=== PATIENT | male | born 1950 | race Caucasian/White ===

== ENCOUNTER 2018-06-29 01:11 | Emergency (ER) | payer MEDICARE, BC ==
[~2018-06-29] VITALS: Ht 170.2 cm; Wt 123.4 kg
[~2018-06-29 01:11] MED LIST: AUGMENTIN 875-1 EACH PO; CITRACAL + D C1 EACH PO; CITRICAL; GLUCOPHAGE XL500 MG; MAXZIDE1 EA; NEXIUM40 MG PO; SINGULAIR10 MG PO; Z FISH OIL PO; Z.0.ASPIR 8181 MG PO; Z.0.AVODART0.5 MG PO; Z.0.CINNAMON500 MG PO; Z.0.CRESTOR20 MG PO; Z.0.FLOMAX0.4 MG PO; Z.0.LISINOPRIL40 MG PO; Z.0.TRICOR145 MG PO; [UNRECOGNIZED DRUG - OTHER]; [UNRECOGNIZED DRUG - REMARK] PO
[2018-06-29] MEDS ORDERED: LIDOCAINE 5% PATCH TP SCH (01:52)
--- NOTE | 2018-06-29 02:33 | Diagnostic Imaging Report ---
CHEST 2 VIEWS, Technique: CHEST 2 VIEWS Comparison: 02/27/2011 Clinical history: Right rib pain DISCUSSION: Stable cardiomediastinal silhouette. Minimal linear bibasilar atelectasis or scar. No effusion or pneumothorax. No acute displaced rib fracture. IMPRESSION: No acute abnormality Signed by: Dr Lia Wells MD on 06/29/2018 2:29 AM
[2018-06-29 04:49] VITALS: BP 108/72
== END 2018-06-29 04:51 | disposition home or self-care (01) ==
LOC: ER 01:11
DX: R07.89 Other chest pain (principal)
CPT/HCPCS: 71046; 99283